=== PATIENT | male | born 1970 | race African-American/Black ===

== ENCOUNTER 2016-11-25 16:00 | Emergency (ER) | payer BC | END 2016-11-25 16:56 | disposition home or self-care (01) | LOC: ER 16:00 | DX: S46.911A Strain of unspecified muscle, fascia and tendon at shoulder and upper arm level, right arm, initial encounter (principal); S86.912A Strain of unspecified muscle(s) and tendon(s) at lower leg level, left leg, initial encounter; S29.012A Strain of muscle and tendon of back wall of thorax, initial encounter; V49.40XA Driver injured in collision with unspecified motor vehicles in traffic accident, initial encounter | CPT/HCPCS: 72072; 73030-RT; 73560-LT; 99283 ==